=== PATIENT | female | born 1995 | race American Indian/Alaskan Native ===

== ENCOUNTER 2020-12-22 11:39 | Emergency (ER) | payer OTHER ==
[2020-12-22 11:49] VITALS: BP 122/79
[2020-12-22 13:11] LABS: Bilirubin,Urine NEG (Negative); Blood,Urine NEG (Negative); Color,Urine Yellow (Yellow); Mucus,Urine FEW /HPF; Protein,Urine <15 mg/dL mg/dL (Negative); WBC,Urine < 1.0 /HPF (0.0-6.0)
--- NOTE | 2020-12-22 14:12 | Emergency Department Report ---
ED Female HPI - General Chief complaint: Abdominal Pain Stated complaint: ABD PAIN Time Seen by Provider: 12/22/20 12:03 Source: patient Mode of arrival: Ambulatory Limitations: No Limitations - History of Present Illness Initial comments: 25-year-old -Citizen Of [place] female who was 2 para 2 presents to the emergency room complaining of lower abdominal discomfort in late menstrual cycle. Patient states her last menstrual cycle was November 17, 2020. She denies any dysuria no vaginal discharge no vaginal bleeding. She states nothing makes her discomfort worse or better. States that is intermittent. Denies any fever no chills. Admits to nausea and vomited x1. She states in her previous pregnancies it took a while for the urine to be positive and she is wondering if we can check for blood for . MD Complaint: pelvic pain Onset/Timin -: days(s) Location: suprapubic Severity scale (0 -10): 2 Quality: sharp Consistency: intermittent Improves with: none Worsens with: none Are you Now?: No Last Menstrual Period: 11/17/20 EDC: 08/24/21 Associated Symptoms: nausea/vomiting. denies: vaginal discharge, vaginal bleeding, fever/chills, headaches, loss of appetite, dysuria, hematuria, sh ortness of breath - Related Data Sexually active: Yes : 2 Para: 2 Allergies Allergy/AdvReac Type Severity Reaction Status Date / Time No Known Allergies Allergy Verified 12/22/20 11:49 ED Review of Systems ROS: Stated complaint: ABD PAIN Other details as noted in HPI Comment: All other systems reviewed and negative ED Past Medical Hx - Social History Smoking Status: Never Smoker ED Physical Exam - General Limitations: No Limitations General appearance: alert, in no apparent distress - Head Head exam: Present: atraumatic, normocephalic - Eye Eye exam: Present: normal appearance - ENT ENT exam: Present: mucous membranes moist - Neck Neck exam: Present: normal inspection - Respiratory Respiratory exam: Present: normal lung sounds bilaterally. Absent: respiratory distress - Cardiovascular Cardiovascular Exam: Present: regular rate, normal rhythm. Absent: systolic murmur, diastolic murmur, rubs, gallop - GI/Abdominal GI/Abdominal exam: Present: soft, normal bowel sounds - Extremities Exam Extremities exam: Present: normal inspection - Back Exam Back exam: Present: normal inspection - Neurological Exam Neurological exam: Present: alert, oriented X3 - Psychiatric Psychiatric exam: Present: normal affect, normal mood - Skin Skin exam: Present: warm, dry, intact, normal color. Absent: rash ED Course Vital Signs 12/22/20 12/22/20 11:47 12:01 Temperature 98.0 F Pulse Rate 60 Respiratory 16 Rate Blood Pressure 122/79 [Left] O2 Sat by Pulse 100 100 Oximetry ED Medical Decision Making - Medical Decision Making 25-year-old -Citizen Of [place] female who was 2 para 2 presents to the emergency room complaining of lower abdominal discomfort in late menstrual cycle. Patient states her last menstrual cycle was November 17, 2020. She denies any dysuria no vaginal discharge no vaginal bleeding. She states nothing makes her discomfort worse or better. States that is intermittent. Denies any fever no chills. Admits to nausea and vomited x1. She states in her previous pregnancies it took a while for the urine to be positive and she is wondering if we can check for blood for . Urinalysis is negative. Negative test. Patient is to follow-up with her primary care provider or [facility]. 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 Critical care attestation.: If time is entered above; I have spent that time in minutes in the direct care of this critically ill patient, excluding procedure time. ED Disposition Clinical Impression: Lower abdominal pain Disposition: 01 HOME / SELF CARE / HOMELESS Is pt being admited?: No Does the pt Need Aspirin: No Condition: Stable Instructions: Abdominal Pain (ED), Abdominal Pain, Adult, [id number] Additional Instructions: Urinalysis is negative for any infection. Negative blood . Referrals: PRIMARY CARE [Primary Care Provider] - 3-5 Days [facility] [Provider Group] - 3-5 Days [facility] [Provider Group] - 3-5 Days Forms: Work/School Release Form(ED) Time of Disposition: 14:14
== END 2020-12-22 14:20 | disposition home or self-care (01) ==
LOC: ED 11:39
DX: R10.30 Lower abdominal pain, unspecified (principal)
CPT/HCPCS: 36415; 81001; 84702; 99283

== ENCOUNTER 2021-09-04 07:57 | Emergency (ER) | payer OTHER ==
[2021-09-04 08:18] VITALS: BP 100/60
== END 2021-09-04 18:54 | disposition left against medical advice (07) ==
LOC: ED 07:57
DX: M54.9 Dorsalgia, unspecified (principal); Z53.21 Procedure and treatment not carried out due to patient leaving prior to being seen by health care provider